=== PATIENT | female | born 1975 | race Two or more races ===

== ENCOUNTER 2022-01-01 06:35 | Day surgery (SDC) | payer OTHER | END 2022-01-01 15:50 | disposition home or self-care (01) | LOC: CIR.AMB 06:35 | PROVIDERS: ATTEND Surgery | DX: N60.22 Fibroadenosis of left breast (principal); Z88.0 Allergy status to penicillin; Z88.8 Allergy status to other drugs, medicaments and biological substances ==

== ENCOUNTER 2025-02-25 11:15 | Inpatient (IN) | payer OTHER ==
[~2025-02-25] VITALS: Ht 162.6 cm; Wt 63.5 kg
[2025-02-25 13:05] VITALS: BP 135/72
[2025-02-25 13:08] VITALS: BP 117/72
[2025-02-25 13:22] LABS: COVID-19 AG NEGATIVE (NEGATIVE)
[2025-02-25 13:49] LABS: RH POSITIVE
[2025-02-28] MEDS ORDERED: METRONIDAZOLE/SODIUM CHLORIDE 500 MG/100 ML PIGGYBACK IV ONE (08:56)
[2025-02-28] MEDS ORDERED: VISTASEAL DUAL APPICATOR 1 EACH APPL TOP ONE (11:12)
[2025-02-28] MEDS ORDERED: THROMBIN,HU/FIBRINOGEN/CALCIUM 10 ML SYRINGE TOP ONE (11:12)
[2025-02-28] MEDS ORDERED: RINGERS SOLUTION,LACTATED 1,000 ML IV SCH (11:45)
[2025-02-28] MEDS ORDERED: MORPHINE SULFATE 4 MG/ML CARTRIDGE IV PRN (11:45)
[2025-02-28] MEDS ORDERED: ACETAMINOPHEN 500 MG GEL..CAP PO SCH (12:00)
[2025-02-28] MEDS ORDERED: SIMETHICONE 125 MG CAPSULE PO SCH (13:00)
[2025-02-28] MEDS ORDERED: MORPHINE SULFATE 4 MG/ML VIAL IV ONE ×2 (13:05→15:00)
[2025-02-28] MEDS ORDERED: ONDANSETRON HCL 2 MG/ML VIAL ONE (13:11)
[2025-02-28] MEDS ORDERED: METOCLOPRAMIDE HCL 5 MG/ML VIAL ONE (16:17)
[2025-02-28] MEDS ORDERED: CEFAZOLIN SODIUM 1,000 MG VIAL ONE (16:18)
[2025-02-28] MEDS ORDERED: SIMETHICONE 125 MG CAPSULE PO ONE (16:18)
[2025-02-28 16:39] LABS: HEMATOCRIT 26.8 % (36.0-45.00); MEAN CELL VOLUME 77.4 fL (80.00-100.00); MEAN CORPUSCULAR HGB CONC 32.2 g/dl (32.0-36.0); PLATELET COUNT 265 K/uL (150-450); RED BLOOD COUNT 3.46 M/uL (4.00-6.00); RED CELL DISTRIBUTION WIDTH 16.3 % (11.5-14.5)
[2025-02-28 16:45] LABS: HEMOGLOBIN 8.6 g/dL (12.0-15.00); MEAN CORPUSCULAR HEMOGLOBIN 24.8 pg (27.00-32.0)
[2025-02-28] MEDS ORDERED: METOCLOPRAMIDE HCL 5 MG/ML VIAL IV SCH (17:00)
[2025-02-28] MEDS ORDERED: CEFAZOLIN SODIUM 1,000 MG VIAL IV SCH (17:00)
[2025-02-28 17:04] LABS: ALBUMIN 3.1 gm/dL (3.4-5.0); CALCIUM 8.3 mg/dL (8.5-10.1); CREATININE SERUM 0.5 mg/dL (0.55-1.02); GFR 130.6; PHOSPHOROUS 3.2 mg/dL (2.5-4.9); POTASSIUM 3.67 mEq/L (3.5-5.1)
[2025-02-28 17:55] VITALS: BP 135/72
[2025-02-28] MEDS ORDERED: DOCUSATE SODIUM 100MG CAP PO SCH (21:00)
[2025-02-28] MEDS ORDERED: GABAPENTIN 300 MG CAPSULE PO SCH (21:00)
[2025-02-28] MEDS ORDERED: FAMOTIDINE/PF 20 MG/2 ML VIAL IV PUSH SCH (21:00)
[2025-03-01] VITALS: BP 114/65
[2025-03-01 02:55] LABS: MEAN CELL VOLUME 77.1 fL (80.00-100.00); MEAN CORPUSCULAR HGB CONC 32.4 g/dl (32.0-36.0); PLATELET COUNT 262 K/uL (150-450); RED BLOOD COUNT 3.28 M/uL (4.00-6.00); RED CELL DISTRIBUTION WIDTH 16.3 % (11.5-14.5)
[2025-03-01 02:57] LABS: HEMOGLOBIN 8.2 g/dL (12.0-15.00)
[2025-03-01 02:58] LABS: HEMATOCRIT 25.3 % (36.0-45.00)
[2025-03-01 03:29] LABS: ALBUMIN 2.9 gm/dL (3.4-5.0); CALCIUM 8.2 mg/dL (8.5-10.1); CREATININE SERUM 0.59 mg/dL (0.55-1.02); GFR 107.89; PHOSPHOROUS 4.3 mg/dL (2.5-4.9); POTASSIUM 3.97 mEq/L (3.5-5.1)
[2025-03-01 08:52] VITALS: BP 139/56; O2SAT 99
[2025-03-01] MEDS ORDERED: ENOXAPARIN SODIUM 40 MG/0.4 ML SYRINGE SUBCUTANEO SCH (09:00)
[2025-03-01 16:53] VITALS: BP 125/65; O2SAT 98
[2025-03-01] MEDS ORDERED: SOD FERRIC GLUC COMPLX/SUCROSE 62.5 MG in 0.9 % SODIUM CHLORIDE 50 ML IV SCH (17:00)
[2025-03-01] MEDS ORDERED: Cyanocobalamin/Mecobalamin 1 TAB.SL SL SCH (17:00)
[2025-03-01 20:28] VITALS: BP 111/61; O2SAT 96
[2025-03-02] VITALS: BP 114/61; O2SAT 97
[2025-03-02 10:03] LABS: HEMATOCRIT 24.3 % (36.0-45.00); MEAN CELL VOLUME 77.3 fL (80.00-100.00); MEAN CORPUSCULAR HEMOGLOBIN 25.1 pg (27.00-32.0); MEAN CORPUSCULAR HGB CONC 32.5 g/dl (32.0-36.0); PLATELET COUNT 269 K/uL (150-450); RED BLOOD COUNT 3.14 M/uL (4.00-6.00); RED CELL DISTRIBUTION WIDTH 15.8 % (11.5-14.5)
[2025-03-02 10:12] LABS: HEMOGLOBIN 7.9 g/dL (12.0-15.00)
== END 2025-03-02 16:40 | disposition home or self-care (01) | DRG 743 ==
LOC: O/R 02-28 05:35 → SURH 02-28 11:15 → OB/GYN 02-28 14:37 → SURH 02-28 19:45 → OB/GYN 03-02 16:40
PROVIDERS: Internal Medicine; Obstetrics & Gynecology; ADMIT Obstetrics & Gynecology Gynecologic Oncology; ATTEND Obstetrics & Gynecology Gynecologic Oncology
PROC: 0UT70ZZ Resection of Bilateral Fallopian Tubes, Open Approach (ICD-10-PCS; 2025-02-28)
PROC: 0UT90ZZ Resection of Uterus, Open Approach (ICD-10-PCS; principal; 2025-02-28 19:45)
DX: D25.1 Intramural leiomyoma of uterus (principal); D25.2 Subserosal leiomyoma of uterus